=== PATIENT | female | born 1995 | race Caucasian/White ===

== ENCOUNTER 2022-10-24 22:49 | Emergency (ER) | payer BC ==
[~2022-10-24] VITALS: Ht 167.6 cm; Wt 72.6 kg
[2022-10-24] MEDS ORDERED: LIDOCAINE 2%-EPI 1:100,000 30 ML VIAL ONE (23:47)
[2022-10-24 23:51] VITALS: BP 118/67; TEMP 98.1; O2SAT 98
[2022-10-25] MEDS ORDERED: LET SOLN TOPICAL 8 ML UDC TP ONE
[2022-10-25] MEDS ORDERED: LIDOCAINE 2%-EPI 1:100,000 30 ML VIAL TP ONE (00:30)
[2022-10-25] MEDS ORDERED: IBUP-1953 PO (00:44)
[2022-10-25] MEDS ORDERED: CEPH500T PO (00:44)
== END 2022-10-25 01:16 | disposition home or self-care (01) ==
LOC: ER 23:10
DX: N75.1 Abscess of Bartholin's gland (principal)
CPT/HCPCS: 99284; 56420; J3490